=== PATIENT | male | born 1955 | race Caucasian/White ===

== ENCOUNTER 2020-01-14 17:15 | Emergency (ER) | payer BC ==
[~2020-01-14] VITALS: Ht 167.6 cm; Wt 72.6 kg
[2020-01-14 18:00] VITALS: BP_SYST 152
--- NOTE | 2020-01-14 18:04 | NUR ---
PATIENT RETURNED TO WAITING ROOM PENDING BED ASSIGNMENT
--- NOTE | 2020-01-14 22:30 | NUR ---
ER Dr. Cheung at bedside examining patient.
--- NOTE | 2020-01-14 22:34 | NUR ---
pt to gurney, left foot and toes with Bruising noted. CMS intact.
[2020-01-15 00:06] VITALS: BP_SYST 152
--- NOTE | 2020-01-15 00:08 | NUR ---
Patient given written and verbal discharge instructions and verbalizes understanding. ER MD Dr. Cheung discussed with patient the results and treatment provided. Patient in stable condition. ID arm band removed. IV catheter removed intact and dressing applied, no active bleeding. Rx of Motrin given. Patient educated on pain management and to follow up with PMD. Pain Scale 2/10. Opportunity for questions provided and answered. Medication side effect fact sheet provided. crutch instruction given and lower leg splint placed CMS possitive.
== END 2020-01-15 00:06 | disposition home or self-care (01) ==
LOC: SED 17:15
DX: S92.342A Displaced fracture of fourth metatarsal bone, left foot, initial encounter for closed fracture (principal); W20.8XXA Other cause of strike by thrown, projected or falling object, initial encounter; Y93.89 Activity, other specified; Y92.89 Other specified places as the place of occurrence of the external cause; Y99.8 Other external cause status
CPT/HCPCS: 99283